=== PATIENT | male | born 1955 | race Two or more races ===

== ENCOUNTER 2021-10-31 18:33 | Inpatient (IN) | payer OTHER ==
[~2021-10-31] VITALS: Ht 177.8 cm; Wt 66.8 kg
[2021-10-31 20:28] LABS: Basophils # (auto) 0.1 10 ^3/uL (0-0.2); Basophils % (auto) 0.4 % (0.0-2.0); Eosinophils # (auto) 0.1 10 ^3/uL (0-0.8); Eosinophils % (auto) 0.4 % (0.0-7.0); Hematocrit 36.3 % (41.0-53.0); Hemoglobin 12.2 g/dL (13.5-17.5); Lymphocytes # (auto) 2.3 10 ^3/uL (0.4-5.4); Lymphocytes % (auto) 14.8 % (10.0-50.0); Mean Corpuscular Hemoglobin 31.5 pg (28.0-32.0); Mean Corpuscular Hgb Conc. 33.5 g/dL (32.0-36.0); Monocytes # (auto) 1.8 10 ^3/uL (0-1.3); Monocytes % (auto) 11.9 % (0.0-12.0); Neutrophils # (auto) 11.1 10 ^3/uL (1.6-8.6); Neutrophils % (auto) 72.5 % (37.0-80.0); Nucleated Red Blood Cells % 0.1 %; Red Blood Cells 3.86 10^6/uL (4.5-5.90); Red Cell Distribution Width 16.5 % (11.8-14.3); White Blood Cell 15.3 10^3/uL (4.4-10.8)
[2021-10-31 20:47] LABS: Albumin 1.5 g/dL (3.4-5.0); BUN/Creatinine Ratio 8.8; Magnesium 1.7 mg/dL (1.6-2.6); Potassium 3.6 mmol/L (3.5-5.1)
[2021-10-31 20:50] LABS: Bilirubin, Total 0.4 mg/dL (0.2-1.0); Total Protein 5.9 g/dL (6.4-8.2)
[2021-10-31 20:54] LABS: Lactic Acid w/Reflex 2.2 mmol/L (0.4-2.0)
[2021-11-01] MEDS ORDERED: SODIUM CHLORIDE 0.9% 1,000 ML IV ONE
[2021-11-01 00:14] LABS: Urine Bacteria FEW /hpf (None Seen); Urine Blood Negative /uL (Negative); Urine Mucus FEW (None Seen); Urine Specific Gravity 1.025 (1.001-1.035); Urine WBC 2 /hpf (0 - 3)
[2021-11-01] MEDS ORDERED: cefTRIAXone 1GM/50ML D5W 50 ML IV ONE (02:15)
[2021-11-01] MEDS ORDERED: MORPHINE SULFATE INJ 2 MG/ml SYRG IV PRN (02:15)
[2021-11-01] MEDS ORDERED: ACETAMINOPHEN 325 MG TAB PO PRN (02:15)
[2021-11-01] MEDS ORDERED: LOPERAMIDE HCL 2 MG CAP/TAB PO PRN (02:15)
[2021-11-01] MEDS ORDERED: HYDROcodone-ACET 5/325MG TAB PO PRN (02:15)
[2021-11-01] MEDS ORDERED: ALBUMIN 25% 100 ML IV ONE (02:15)
[2021-11-01] MEDS ORDERED: NITROGLYCERIN 0.4 MG SL TAB SL PRN (02:15)
[2021-11-01] MEDS ORDERED: PANTOPRAZOLE 40 MG/10 ML VIAL INJ IV ONE (02:15)
[2021-11-01] MEDS ORDERED: ONDANSETRON HCL 4 MG/2 ML VIAL IV PRN (02:15)
[2021-11-01] MEDS ORDERED: CALCIUM GLUC 1,000mg/50ml-NS 50 ML IV ONE (02:45)
[2021-11-01] MEDS: SODIUM CHLORIDE 0.9% 1,000 ML IV SCH ×2 (02:48→14:45)
[2021-11-01] MEDS: metroNIDAZOLE 500MG/100ML 100 ML IV SCH ×3 (05:45→22:21)
[2021-11-01] MEDS ORDERED: metroNIDAZOLE 500MG/100ML 100 ML IV SCH (06:00)
[2021-11-01] MEDS: cefTRIAXone 1GM/50ML D5W 50 ML IV SCH (09:38)
[2021-11-01] MEDS ORDERED: sulfaSALAzine 500 MG TAB PO SCH (10:00)
[2021-11-01] MEDS ORDERED: PANTOPRAZOLE 40 MG/10 ML VIAL INJ IV SCH (10:00)
[2021-11-01] MEDS ORDERED: OMNIPAQUE ORAL SOLN 500ml 12mg/ml PO ONE (14:07)
[2021-11-01] MEDS ORDERED: IOHEXOL 300 MG/ML 100ML BOTTLE IJ ONE (16:26)
[2021-11-01] MEDS: methylPREDNISolone SOD SUCC 40 MG/ML VL IV SCH (18:00)
[2021-11-01] MEDS: sulfaSALAzine 500 MG TAB PO SCH ×2 (18:10→22:22)
[2021-11-01] MEDS ORDERED: CIPR250T3 PO (22:04)
[2021-11-01] MEDS ORDERED: SULF500T37 PO (22:04)
[2021-11-02] MEDS: SODIUM CHLORIDE 0.9% 1,000 ML IV SCH (01:00)
[2021-11-02] MEDS: methylPREDNISolone SOD SUCC 40 MG/ML VL IV SCH ×3 (01:31→11:18)
[2021-11-02 05:00] VITALS: BP 90/61
[2021-11-02] MEDS: sulfaSALAzine 500 MG TAB PO SCH ×2 (05:44→11:18)
[2021-11-02] MEDS: metroNIDAZOLE 500MG/100ML 100 ML IV SCH ×2 (05:45→14:00)
[2021-11-02 06:01] VITALS: BP 102/69
[2021-11-02 07:19] LABS: Basophils # (auto) 0 10 ^3/uL (0-0.2); Basophils % (auto) 0.2 % (0.0-2.0); Eosinophils # (auto) 0 10 ^3/uL (0-0.8); Hematocrit 32.2 % (41.0-53.0); Hemoglobin 10.7 g/dL (13.5-17.5); Lymphocytes # (auto) 1.3 10 ^3/uL (0.4-5.4); Lymphocytes % (auto) 9.9 % (10.0-50.0); Mean Corpuscular Hemoglobin 31.5 pg (28.0-32.0); Mean Corpuscular Hgb Conc. 33.3 g/dL (32.0-36.0); Mean Corpuscular Volume 94.7 fL (80.0-100.0); Monocytes # (auto) 0.5 10 ^3/uL (0-1.3); Neutrophils # (auto) 10.9 10 ^3/uL (1.6-8.6); Neutrophils % (auto) 85.9 % (37.0-80.0); Red Cell Distribution Width 16.7 % (11.8-14.3); White Blood Cell 12.7 10^3/uL (4.4-10.8)
[2021-11-02 07:43] LABS: Albumin 1.6 g/dL (3.4-5.0); Potassium 3.5 mmol/L (3.5-5.1)
[2021-11-02 07:48] LABS: Bilirubin, Total 0.4 mg/dL (0.2-1.0)
[2021-11-02] MEDS: cefTRIAXone 1GM/50ML D5W 50 ML IV SCH (08:51)
[2021-11-02 09:00] VITALS: BP 103/61
[2021-11-02 13:00] VITALS: BP 113/70
[2021-11-02] MEDS ORDERED: SULF500T37 PO (13:10)
[2021-11-02] MEDS ORDERED: METR500T PO (13:10)
[2021-11-02] MEDS ORDERED: CHL4PW PO (13:13)
[2021-11-02 14:09] VITALS: BP 113/70
== END 2021-11-02 15:35 | disposition home or self-care (01) | DRG 392 ==
LOC: ER 18:33 → TELE 11-01 02:22 → TELE-WESTW 11-01 21:40
PROVIDERS: ADMIT Nurse Practitioner; ATTEND Hospitalist
DX: K58.0 Irritable bowel syndrome with diarrhea (principal); E46 Unspecified protein-calorie malnutrition; N39.0 Urinary tract infection, site not specified; E86.0 Dehydration; E88.09 Other disorders of plasma-protein metabolism, not elsewhere classified; Z20.822 Contact with and (suspected) exposure to COVID-19; Z68.21 Body mass index [BMI] 21.0-21.9, adult
CPT/HCPCS: 36415; 74177; 80053; 81001; 83605; 83735; 83880; 84156; 84484; 85025; 86141; 87040; 87045; 87177; 87427; 87493; 93005; 96361; 96365; 96366; 96367; 96368; 96375; 96376; C9113; G0378; J0696; J3490; P9047